=== PATIENT | female | born 1985 | race Caucasian/White ===

== ENCOUNTER 2020-11-26 18:48 | Emergency (ER) | payer OTHER, SELFPAY ==
[2020-11-26 19:05] VITALS: BP 143/90; PULSE 77; RESP 16; TEMP 36.3; O2SAT 100
--- NOTE | 2020-11-26 19:25 | ED.SKABFB ---
HPI - Skin/Abscess/Foreign Bdy General Chief complaint: Skin/Abscess/Foreign Body Stated complaint: Rash History of Present Illness HPI narrative: The patient, previously mostly healthy but with sensitive skin , presents with skin eruption. Patient states she has about a week and a half history of pink, slightly raised, itchy eruption underneath bilateral axilla. Symptoms are mild, worse with scratching, seems to be spreading proximally ; she denies skin preps, clothing, prior/other similar rashes. Discussed possible causes [allergic folliculitis, environmental/heat, infectious, etc.] and will treat broadly Related Data Allergies Allergy/AdvReac Type Severity Reaction Status Date / Time FRAGRANCE AND DYES Allergy Rash Uncoded 11/26/20 19:16 Review of Systems Review of Systems: Narrative: The patient has been informed that they may have pre-hypertension or Hypertension based on a BP reading in the department. I recommend that the patient call the primary care provider listed on their discharge instructions or a physician of their choice this week to arrange follow up for further evaluation of possible pre-hypertension or Hypertension General/Constitutional: No weight loss,fever Eyes: N0: Redness,discharge Ears/Nose/Throat: No: Epistaxis,ear discharge Respiratory: Denies: Hemoptysis Gastrointestinal: No Vomiting, Bleeding-rectal Skin: No Lumps, REPORTS eruption Neurologic: No Focal Weakness,Sz Hematologic: Denies: Petechiae/Purpura Psychiatric: No: Suicida ideationl All Other Systems: Reviewed and Negative PMFSH Social History Social History (Updated 04/26/19 @ 10:53 by MOHAMUD Duong) Smoking status: Never smoker Alcohol intake: never Substance use: never Gender identity (if verbalized by the patient): Female Comments At time of signature, agree with nursing past medical, surgical, social and family history. There is no relevant family history pertinent to the presenting complaint Exam Narrative: Exam Narrative: General Appearance: well nourished, Normocephalic, Conjunctiva clear Ear: External ear normal Nose: Normal nose, Nare clear Mouth/Throat: Normal appearing Neck Exam: Supple Respiratory: Airway patent, No respiratory distress Musculoskeletal: Moves all extremities, Non tender Spine/Back: Normal ROM Skin: Warm, Dry macular papular eruption on the bilateral axilla, with extension to shoulder, trunk Neurological: A&O x3, Normal affect Course Vital Signs Vital signs: Vital Signs Temperature 97.4 F L 11/26/20 19:05 Pulse Rate 77 11/26/20 19:05 Respiratory Rate 16 11/26/20 19:05 Blood Pressure 143/90 H 11/26/20 19:05 Pulse Oximetry 100 11/26/20 19:05 Temperature 97.4 F L 11/26/20 19:05 Pulse Rate 77 11/26/20 19:05 Respiratory Rate 16 11/26/20 19:05 Blood Pressure 143/90 H 11/26/20 19:05 Pulse Oximetry 100 11/26/20 19:05 Discharge Plan Discharge Patient Disposition: Home, Self-Care Condition: Stable Instructions: Antibiotic Form, Folliculitis (ED) Additional Instructions: Take clindamycin with food, probiotic; stop if diarrhea occurs Keep photo log of area; see dermatology for persistent symptoms Prescriptions: New clindamycin HCl 300 mg capsule 300 mg PO TID Qty: 15 RF: 0 prednisone 20 mg tablet 60 mg PO DAILY Qty: 15 RF: 0 Follow-up/Referrals: Andreas,Clif Nunez DO [Primary Care Provider] -
== END 2020-11-26 19:35 | disposition home or self-care (01) ==
PROVIDERS: Emergency Provider Emergency Medicine; PCP Family Medicine
DX: L73.9 Follicular disorder, unspecified (principal)
CPT/HCPCS: 99213; G0463

== ENCOUNTER 2022-06-27 13:38 | Emergency (ER) | payer OTHER, SELFPAY ==
[2022-06-27 14:05] VITALS: BP 99/79; PULSE 60; RESP 18; TEMP 36.2; O2SAT 99
--- NOTE | 2022-06-27 14:20 | ED.SKABFB ---
HPI - Skin/Abscess/Foreign Bdy General Chief complaint: Skin/Abscess/Foreign Body Stated complaint: Rash On Body Time Seen by Provider: 06/27/22 14:20 Source: patient Mode of arrival: ambulatory Limitations: no limitations History of Present Illness HPI narrative: 37-year-old female presents with complaint of intermittent hives for the past 3-4 days. Took Benadryl and they went away but then came back. Reports itching. No difficulty breathing or swallowing. History of similar reaction when using scented laundry detergents. States that she did recently stay and in hotel but brought her own bed sheets. Reports she normally needs steroids when she is having this type of reaction. No other complaints today. All systems reviewed and negative except as noted above. Related Data Allergies Allergy/AdvReac Type Severity Reaction Status Date / Time FRAGRANCE AND DYES Allergy Rash Uncoded 06/27/22 14:04 Review of Systems Review of Systems: CONSTITUTIONAL: Denies fever, chills, or sweats. EYES: Denies visual changes, redness, or discharge. ENT: Denies rhinorrhea, congestion, sore throat, or otalgia. CARDIOVASCULAR: Denies chest pain, palpitations, or edema. RESPIRATORY: Denies cough or dyspnea. GASTROINTESTINAL: Denies abdominal pain, nausea, vomiting, or diarrhea. GENITOURINARY: Denies dysuria or hematuria. SKIN: Reports itchy hive-like rash. MUSCULOSKELETAL: Denies back pain, joint pain, or myalgia. NEUROLOGIC: Denies headache, numbness, or weakness. PSYCHIATRIC: Denies anxiety or depression. All other systems reviewed are negative, except as documented in HPI. [facility] Social History Social History (Updated 04/26/19 @ 10:53 by Richelle Faulkner, [employer]) Smoking status: Never smoker Alcohol intake: never Substance use: never Living arrangements: with family Gender identity (if verbalized by the patient): Female Comments At time of signature, agree with nursing past medical, surgical, social and family history. There is no relevant family history pertinent to the presenting complaint. Exam Narrative: GENERAL: This is a well-nourished, well-developed patient, in no apparent distress. HEAD: normocephalic, atraumatic. EYES: PERRL. Sclera clear/white. Vision is grossly intact. EARS: External ears normal NOSE: External nose normal NECK: Neck supple, non-tender without lymphadenopathy, masses or thyromegaly. CARDIOVASCULAR: Regular rate and rhythm without murmurs, gallops, or rubs. RESPIRATORY: Clear to auscultation. Breath sounds equal bilaterally. No wheezes, rales, or rhonchi. SKIN: warm, Dry, intact with no suspicious lesions, good texture and turgor. erythematous hives lower back, left upper arm, right upper abdomen. NEURO: awake, alert, and oriented to person, place and time. There were no obvious focal neurologic abnormalities. EXTREMITIES: No joint tenderness, effusion, or edema noted. Course Course Level of Care: Express Care Visit Vital Signs Vital signs: Vital Signs Temperature 36.2 C L 06/27/22 14:05 Pulse Rate 60 06/27/22 14:05 Respiratory Rate 18 06/27/22 14:05 Blood Pressure 99/79 L 06/27/22 14:05 Pulse Oximetry 99 06/27/22 14:05 Oxygen Delivery Room Air 06/27/22 14:05 Temperature 36.2 C L 06/27/22 14:05 Pulse Rate 60 06/27/22 14:05 Respiratory Rate 18 06/27/22 14:05 Blood Pressure 99/79 L 06/27/22 14:05 Pulse Oximetry 99 06/27/22 14:05 Oxygen Delivery Room Air 06/27/22 14:05 Reviewed MDM - Skin/Abscess/Foreign Bdy MDM Narrative Medical decision making narrative: Patient is aware of diagnosis, understands and agrees to treatment plan. Anticipatory guidance given. Patient agrees to follow-up as directed and is aware of reasons to seek care at the emergency department. Portions of this record may have been created with voice recognition software Discharge Plan Discharge Clinical Impression: Hives Patient Disposition: Home, Self-
== END 2022-06-27 14:33 | disposition home or self-care (01) ==
PROVIDERS: Emergency Provider Nurse Practitioner Family; PCP Family Medicine
DX: L50.9 Urticaria, unspecified (principal)
CPT/HCPCS: 99213; G0463

== ENCOUNTER 2023-06-10 17:18 | Emergency (ER) | payer SELFPAY ==
[2023-06-10 17:34] VITALS: BP 142/86; PULSE 84; RESP 16; TEMP 36.7; O2SAT 98
--- NOTE | 2023-06-10 18:25 | ED.URI ---
HPI - URI/Sore Throat General Chief Complaint: Upper Respiratory Infection Stated Complaint: sore throat Time Seen by Provider: 06/10/23 18:25 Source: patient Mode of arrival: ambulatory Limitations: no limitations History of Present Illness HPI Narrative: 38-year-old female presents with complaint of nasal congestion,, postnasal drainage, sore throat, throat swelling, right ear pain and pressure for the past 2-3 days. Afebrile. Reports sore throat worse at night. No chest pain or shortness of breath. Denies nausea vomiting diarrhea. All systems reviewed and negative except as noted above. Related Data Allergies Allergy/AdvReac Type Severity Reaction Status Date / Time FRAGRANCE AND DYES Allergy Rash Uncoded 06/10/23 17:37 Review of Systems Review of Systems: CONSTITUTIONAL: Denies fever, chills, or sweats. EYES: Denies visual changes, redness, or discharge. ENT: Reports rhinorrhea, congestion, sore throat, and right ear pain CARDIOVASCULAR: Denies chest pain, palpitations, or edema. RESPIRATORY: reports cough. Denies dyspnea. GASTROINTESTINAL: Denies abdominal pain, nausea, vomiting, or diarrhea. GENITOURINARY: Denies dysuria or hematuria. SKIN: Denies rash or itching. MUSCULOSKELETAL: Denies back pain, joint pain, or myalgia. NEUROLOGIC: Denies headache, numbness, or weakness. PSYCHIATRIC: Denies anxiety or depression. All other systems reviewed are negative, except as documented in HPI. PMFSH Social History Social History (Updated 04/26/19 @ 10:53 by Richelle Faulkner, [facility]) Smoking status: Never smoker Alcohol intake: never Substance use: never Living arrangements: with family Gender identity (if verbalized by the patient): Female Comments At time of signature, agree with nursing past medical, surgical, social and family history. There is no relevant family history pertinent to the presenting complaint. Exam Narrative: GENERAL: This is a well-nourished, well-developed patient, in no apparent distress. HEAD: normocephalic, atraumatic. EYES: PERRL. Sclera clear/white. Vision is grossly intact. EARS: External ears normal, auditory canals clear and without drainage, Left TM normal. Right TM is erythematous with fluid. No perforation bilaterally.. Hearing grossly intact. NOSE: External nose normal with Clear nasal drainage, redness and swelling to bilateral nares. THROAT: Mucous membranes moist, erythema to posterior pharynx with tonsils 1+ bilaterally. No exudates. NECK: Neck supple, non-tender without lymphadenopathy, masses or thyromegaly. CARDIOVASCULAR: Regular rate and rhythm without murmurs, gallops, or rubs. RESPIRATORY: Clear to auscultation. Breath sounds equal bilaterally. No wheezes, rales, or rhonchi. SKIN: warm, Dry, intact with no suspicious lesions or rash, good texture and turgor. NEURO: awake, alert, and oriented to person, place and time. There were no obvious focal neurologic abnormalities. EXTREMITIES: No joint tenderness, effusion, or edema noted. Course Course Level of Care: Express Care Visit Vital Signs Vital signs: Vital Signs Temperature 36.7 C 06/10/23 17:34 Pulse Rate 84 06/10/23 17:34 Respiratory Rate 16 06/10/23 17:34 Blood Pressure 142/86 H 06/10/23 17:34 Pulse Oximetry 98 06/10/23 17:34 Oxygen Delivery Room Air 06/10/23 17:34 Temperature 36.7 C 06/10/23 17:34 Pulse Rate 84 06/10/23 17:34 Respiratory Rate 16 06/10/23 17:34 Blood Pressure 142/86 H 06/10/23 17:34 Pulse Oximetry 98 06/10/23 17:34 Oxygen Delivery Room Air 06/10/23 17:34 Reviewed MDM - URI/Sore Throat MDM Narrative Medical decision making narrative: Patient is aware of diagnosis, understands and agrees to treatment plan. Anticipatory guidance given. Patient agrees to follow-up as directed and is aware of reasons to seek care at the emergency department. Portions of this record may have been created with voice recognition
== END 2023-06-10 18:41 | disposition home or self-care (01) ==
PROVIDERS: Emergency Provider Nurse Practitioner Family
DX: J01.90 Acute sinusitis, unspecified (principal); H65.01 Acute serous otitis media, right ear
CPT/HCPCS: 87081; 87880; 99213; G0463

== ENCOUNTER 2024-11-18 12:42 | Emergency (ER) | payer OTHER, SELFPAY ==
[2024-11-18 12:48] VITALS: BP 123/83; PULSE 78; RESP 16; TEMP 36.4; O2SAT 99
--- NOTE | 2024-11-18 13:21 | ED.SKABFB ---
HPI - Skin/Abscess/Foreign Bdy General Chief complaint: Skin/Abscess/Foreign Body Stated complaint: RASH Time Seen by Provider: 11/18/24 13:21 Source: patient Mode of arrival: ambulatory Limitations: no limitations History of Present Illness HPI narrative: 39-year-old female presents with complaint of rash to right arm for approximately 10 days. Has been applying calamine, hydrocortisone and Benadryl cream daily. Reports some improvement to rash but mostly still looks the same. No pain or itching. All systems reviewed and negative except as noted above. Related Data Allergies Allergy/AdvReac Type Severity Reaction Status Date / Time FRAGRANCE AND DYES Allergy Rash Uncoded 11/18/24 12:57 Review of Systems Review of Systems: CONSTITUTIONAL: Denies fever, chills, or sweats. EYES: Denies visual changes, redness, or discharge. ENT: Denies rhinorrhea, congestion, sore throat, or otalgia. CARDIOVASCULAR: Denies chest pain, palpitations, or edema. RESPIRATORY: Denies cough or dyspnea. GASTROINTESTINAL: Denies abdominal pain, nausea, vomiting, or diarrhea. GENITOURINARY: Denies dysuria or hematuria. SKIN: Reports rash right arm. Denies itching. MUSCULOSKELETAL: Denies back pain, joint pain, or myalgia. NEUROLOGIC: Denies headache, numbness, or weakness. PSYCHIATRIC: Denies anxiety or depression. All other systems reviewed are negative, except as documented in HPI. [facility] Social History Social History (Updated 04/26/19 @ 10:53 by Richelle Faulkner, [facility]) Smoking status: Never smoker Alcohol intake: never Substance use: never Living arrangements: with family Gender identity (if verbalized by the patient): Female Comments At time of signature, agree with nursing past medical, surgical, social and family history. There is no relevant family history pertinent to the presenting complaint. Exam Narrative: GENERAL: This is a well-nourished, well-developed patient, in no apparent distress. HEAD: normocephalic, atraumatic. EYES: PERRL. Sclera clear/white. Vision is grossly intact. EARS: External ears normal NOSE: External nose normal NECK: Neck supple, non-tender without lymphadenopathy, masses or thyromegaly. CARDIOVASCULAR: Regular rate and rhythm without murmurs, gallops, or rubs. RESPIRATORY: Clear to auscultation. Breath sounds equal bilaterally. No wheezes, rales, or rhonchi. SKIN: warm, Dry, intact , good texture and turgor. Erythematous maculopapular rash to anterior medial aspect right forearm. No drainage. NEURO: awake, alert, and oriented to person, place and time. There were no obvious focal neurologic abnormalities. EXTREMITIES: No joint tenderness, effusion, or edema noted. Course Course Level of Care: Express Care Visit Vital Signs Vital signs: Vital Signs Temperature 36.4 C L 11/18/24 12:48 Pulse Rate 78 11/18/24 12:48 Respiratory Rate 16 11/18/24 12:48 Blood Pressure 123/83 11/18/24 12:48 Pulse Oximetry 99 11/18/24 12:48 Oxygen Delivery Room Air 11/18/24 12:48 Temperature 36.4 C L 11/18/24 12:48 Pulse Rate 78 11/18/24 12:48 Respiratory Rate 16 11/18/24 12:48 Blood Pressure 123/83 11/18/24 12:48 Pulse Oximetry 99 11/18/24 12:48 Oxygen Delivery Room Air 11/18/24 12:48 Reviewed MDM - Skin/Abscess/Foreign Bdy MDM Narrative Medical decision making narrative: Will treat possible contact dermatitis/eczema triamcinolone, Medrol Dosepak. Recommend a daily antihistamine. Will see her doctor if not improving. Patient is well-appearing, nontoxic. Discharge Plan Discharge Clinical Impression: Contact dermatitis and other eczema, due to unspecified cause Patient Disposition: Home Condition: Stable Instructions: Contact Dermatitis (ED) Additional Instructions: Take steroids as prescribed. Apply triamcinolone cream sparingly to affected area 2 to 3 times a day. Take a daily antihistamine such as Claritin or Zyrtec. Follow-up with your primary care physician or electroneurodiagnostic technologist if not improving. Patient Language: [place] Korean Prescriptions: New methylprednisolone [Medrol (Monico)] 4 mg tablets,dose pack See Rx Instructions PO .COMPLEX Qty: 21 0RF Rx Instructions: orally per package directions triamcinolone acetonide 0.1 % cream 1 applic topical BID PRN (Reason: rash) Qty: 15 0RF No Action prednisone 20 mg tablet 40 mg PO DAILY 5 Days Qty: 10 0RF amoxicillin 875 mg tablet 875 mg PO Q12H 10 Days Qty: 20 0RF Follow-up/Referrals: Alex,SHARLENE Krause [Primary Care Provider] - Time of Disposition: 13:29
== END 2024-11-18 13:45 | disposition home or self-care (01) ==
PROVIDERS: Emergency Provider Nurse Practitioner Family; PCP Nurse Practitioner Family
DX: L25.9 Unspecified contact dermatitis, unspecified cause (principal)
CPT/HCPCS: 99213; G0463

== ENCOUNTER 2024-12-31 11:13 | Emergency (ER) | payer OTHER, SELFPAY ==
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
[2024-12-31 11:21] VITALS: BP 148/90; PULSE 98; RESP 20; TEMP 36.6; O2SAT 97
== END 2024-12-31 11:35 | disposition home or self-care (01) ==
PROVIDERS: Emergency Provider Nurse Practitioner; PCP Nurse Practitioner Family
DX: L03.311 Cellulitis of abdominal wall (principal); S30.861A Insect bite (nonvenomous) of abdominal wall, initial encounter; W57.XXXA Bitten or stung by nonvenomous insect and other nonvenomous arthropods, initial encounter
CPT/HCPCS: 99213; G0463